=== PATIENT | male | born 1975 | race Caucasian/White ===

== ENCOUNTER → 2018-04-15 | Outpatient (CLI) | payer BC ==
[~2018-04-15] VITALS: Ht 172.7 cm; Wt 81.6 kg
[~2018-04-15] MED LIST: DIAZ5TAB3; HYDROCO/APAP; ONDA4TAB8 PO; ONDANSETRON 4 MG/2 ML (SDV) Z0FRAN IV ONE; PANT40TA2 PO
[2018-04-15 10:57] VITALS: BP 109/73
[2018-04-15] MEDS: NS IV 1000 ML 1,000 ML IV SCH ×2 (11:00→11:58)
[2018-04-15 12:55] VITALS: BP 109/73
== END ==
LOC: SDC 10:26
DX: E86.0 Dehydration (principal)
CPT/HCPCS: 96361; 96374

== ENCOUNTER → 2019-01-24 | Outpatient (CLI) | payer BC ==
[~2019-01-24] MED LIST changes: +IOHEXOL 350 MG/ML 100 ML (OMNIPAQUE 350) VIAL IV ONE; +NS 100 ML (IVPB) BAG IV ONE; -ONDANSETRON 4 MG/2 ML (SDV) Z0FRAN IV ONE; +RECEIVED CONTRAST 20 ML VIAL IV SCH
--- NOTE | 2019-01-24 14:26 | Diagnostic Imaging Report ---
PROCEDURE: CT abdomen and pelvis with and without contrast. TECHNIQUE: Precontrast acquisitions were acquired through the abdomen and pelvis. Multiple contiguous axial images were obtained through the abdomen and pelvis after the administration of intravenous contrast. INDICATION: Abdominal pain and vomiting. COMPARISON: Comparison made with prior examination 06/29/2016. FINDINGS: Heart size normal. Lung bases are clear. Liver is normal in size without focal lesions. Gallbladder is unremarkable. There is no biliary ductal dilatation. Spleen is normal. The pancreas and adrenal glands are unremarkable. The kidneys are normal in appearance. Aorta is nonaneurysmal. Bowel gas pattern is nonspecific. There is no free air. There is no ascites. There are no focal inflammatory changes. There is no pelvic mass, adenopathy or free fluid. The appendix appears to be surgically absent. The osseous structures are unremarkable. IMPRESSION: Unremarkable CT abdomen and pelvis. Dictated by: Dictated on workstation # [id number]
== END ==
LOC: RAD 13:01
PROVIDERS: ATTEND Nurse Practitioner Family
DX: K21.9 Gastro-esophageal reflux disease without esophagitis (principal); F12.10 Cannabis abuse, uncomplicated; F41.9 Anxiety disorder, unspecified; E78.00 Pure hypercholesterolemia, unspecified; R61 Generalized hyperhidrosis; R10.9 Unspecified abdominal pain
CPT/HCPCS: 74178

== ENCOUNTER → 2019-04-23 | Outpatient (CLI) | payer BC ==
[~2019-04-23] MED LIST changes: +CATHETER FLUSH 10 ML SYR IV PRN; -IOHEXOL 350 MG/ML 100 ML (OMNIPAQUE 350) VIAL IV ONE; -NS 100 ML (IVPB) BAG IV ONE; -RECEIVED CONTRAST 20 ML VIAL IV SCH
--- NOTE | 2019-04-23 12:04 | Diagnostic Imaging Report ---
Indication: Right upper quadrant pain. Patient was administered 5.5 mCi technetium 99m Choletec intravenously and imaging over the abdomen was performed. At 30 minutes patient ingested ensure and a gallbladder ejection fraction was calculated. There is homogeneous uptake of activity by the liver with prompt excretion of activity into the gallbladder and common duct. Normal passage of activity into the small bowel is seen. Gallbladder ejection fraction is normal at 62%. Impression: Normal HIDA scan and gallbladder ejection fraction. Dictated by: Dictated on workstation # [id number]
== END ==
LOC: CARD 09:37
PROVIDERS: ATTEND Nurse Practitioner Family
DX: R10.11 Right upper quadrant pain (principal)
CPT/HCPCS: 78227

== ENCOUNTER 2020-05-03 20:51 | Emergency (ER) | payer BC, OTHER ==
[~2020-05-03] VITALS: Ht 172.7 cm; Wt 75.6 kg
[~2020-05-03 20:51] MED LIST changes: -CATHETER FLUSH 10 ML SYR IV PRN; -DIAZ5TAB3; +DIAZ5TAB49
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
[2020-05-03] MEDS ORDERED: TETANUS,DIPTH,PERTUSS P/F (BOOSTRIX) 0.5 ML VIAL IM ONE (21:30)
[2020-05-03] MEDS ORDERED: CEPHALEXIN 250 MG (KEFLEX) CAP PO ONE (21:30)
[2020-05-03] MEDS ORDERED: HYDROcodone/APAP 5 MG/325 MG (LORTAB) TAB PO ONE (21:30)
[2020-05-03] MEDS ORDERED: HYDR-83 PO (22:13)
[2020-05-03] MEDS ORDERED: CEPH500T PO (22:13)
[2020-05-03 22:38] VITALS: BP 141/82
--- OUTSIDE RECORDS SUMMARY | 2020-05-04 00:47 | XMS REPORT ---
Author Author Rodney CEBALLOS Organization [facility] [place] Address [address] [place] [address] Care Team Providers Care Manager Intermediate Name Role Phone IFEOMA CEBALLOS Unavailable PROBLEMS Type Condition ICD9-CM Code [id number] Code Onset Dates Condition S tatus SNOMED Code Problem Major depressive disorder, single episode, moderate F32.1 Active 84871541 Problem Generalized anxiety disorder F41.1 A ctive [id number] ALLERGIES No Known Allergies ENCOUNTERS Encounter Location Date Diagnosis [facility] [place] [address] [facility] [id number] [address] [place] [phone] Feb, Major depressive disorder, s jair episode, moderate F32.1 and Generalized anxiety disorder F41.1 [facility] [place] [address] [facility] [id number] [address] [place] [phone] Jan, Generalized anxiety disorder F41.1 and Major depressive disorder, single episode, moderate F32.1 IMMUNIZATIONS No Known Immunizations SOCIAL HISTORY Never Assessed REASON FOR VISIT BH intake JjournotRZhora PLAN OF CARE Activity Details Follow Up 2 Months, prn Reason: VITAL SIGNS Height 68 in 2018-03-12 Weight 176.6 lbs 2018-03-12 Heart Rate 84 bpm 2018-03-12 Respiratory Rate 20 2018-03-12 BMI 26.85 kg/m2 2018-03-12 Blood pressure systolic 106 mmHg 2018-03-12 Blood pressure diastolic 68 mmHg 2018-03-12 MEDICATIONS Medication Instructions Dosage Frequency Start Date End Date Duration S tatus Xanax 0.25 MG Orally Twice a day 1 tablet 12h Active Citalopram Hydrobromide 40 MG Orally Once a day 1 tablet 24h Active RESULTS No Results PROCEDURES No Known procedures INSTRUCTIONS MEDICATIONS ADMINISTERED No Known Medications MEDICAL (GENERAL) HISTORY Type Description Date Medical History hypercholesterolemia Medical History depression and anxiety Surgical History shoulder surgery Surgical History appendectomy
--- OUTSIDE RECORDS SUMMARY | 2020-05-04 00:47 | XMS REPORT ---
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 Role Phone ALEXANDRE WOLF Unavailable PROBLEMS Type Condition ICD9-CM Code [id number] Code Onset Dates Condition S tatus SNOMED Code Problem Major depressive disorder, single episode, moderate F32.1 Active [id number] Problem Generalized anxiety disorder F41.1 A ctive [id number] ALLERGIES No Known Allergies ENCOUNTERS Encounter Location Date Diagnosis [facility] [address] [place] [id number] [place] [phone] Feb, Major depressive disorder, s jair episode, moderate F32.1 and Generalized anxiety disorder F41.1 [facility] [address] [facility] [id number] [address] [place] [phone] Jan, Generalized anxiety disorder F41.1 and Major depressive disorder, single episode, moderate F32.1 IMMUNIZATIONS No Known Immunizations SOCIAL HISTORY Never Assessed REASON FOR VISIT intake PLAN OF CARE Activity Details Follow Up 2 Weeks Reason: VITAL SIGNS MEDICATIONS Medication Instructions Dosage Frequency Start Date End Date Duration S tatus Citalopram Hydrobromide 20 MG Orally Once a day 1 tablet 24h Active Xanax 0.25 MG Orally Twice a day 1 tablet 12h Active RESULTS No Results PROCEDURES Procedure Date Ordered Result Body Site Psych diagnostic evaluation, new patient February 20, 2018 INSTRUCTIONS MEDICATIONS ADMINISTERED No Known Medications MEDICAL (GENERAL) HISTORY Type Description Date Medical History hypercholesterolemia Medical History depression and anxiety Surgical History shoulder surgery Surgical History appendectomy
--- OUTSIDE RECORDS SUMMARY | 2020-05-04 00:47 | XMS REPORT ---
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 [facility] Address [address] [address] Care Team Providers Care Undergraduate Internship Name Role Phone JOSE SHINE Unavailable ALEXANDRE WOLF Unavailable IFEOMA CEBALLOS Unavailable NISSA HOUSE APRN Unavailable Unavailable Unavailable Unavailable Allergies Normalized Allergy Reported Date of Reaction(s) Care Provider Facility Allergy Type classification allergen Allergy Onset MA (8 Unclassified NKANo Known 12-29-2005 - no information ALEXANDRE PELAEZ Not Available sources.) Allergies NATALY (85265) Medications No Information Problems Active Problems Problem Normalized Date Last Normalized Normalized Provider Fa cility Classification Problem(s) Recorded Problem Problem Sta tus Duration Substance-rela Cannabis abuse Chronic Active SID STANTON Not Available pablito disorders with other (03894) (4 sources.) cannabis-induc ed disorder Translations: [ CANNABIS ABUSE, UNCOMPLICATED] Fluid and Dehydration Episodic Active JOSE SHINE Not A vailable electrolyte MD (53108) disorders (3 sources.) Abdominal Diaphragmatic Episodic Active NEHEMIAS PADRON , Not Available hernia (2 hernia without DO (74041) sources.) obstruction or gangrene Gastritis and Gastritis, Episodic Active NEHEMIAS PADRON , No t Available duodenitis (2 unspecified, DO (99717) sources.) without bleeding Esophageal Gastro-esophag Chronic Active NEHEMIAS PADRON , N ot Available disorders (4 eal reflux DO (48185) sources.) disease without esophagitis Other skin Generalized Episodic Active CLINTON JERARDO Not Kathia ilable disorders (2 hyperhidrosis (49769) sources.) Malaise and Weakness Episodic Active SID STANTON Not Avail able fatigue (2 (63161) sources.) Past or Other Problems Problem Normalized Date Last Normalized Normalized Provider Fa cility Classification Problem(s) Recorded Problem Problem Sta tus Duration Disorders of Pure no information no information CLINTON JERARDO Not Available lipid hypercholester (54660) metabolism (2 olemia, sources.) unspecified Procedures The data below is from unstructured sourcesNo known history of procedures. No Known procedures No Known procedures Immunizations The data below is from unstructured sourcesNo immunization records.No immunization records.No immunization records. No Known Immunizations No Known Immunizations No Known Immunizations No Known Immunizations Results The data below is from unstructured sources No Results No Results No Results Vital Signs The data below is from unstructured sources Vital Response Date/Time Temperature (Fahrenheit) 97.8 degree s F (97.6 - 99.5) 06/29/2016 11:01am Temperature (Calculated Celsius) 36. 95256 degrees C (36.4 - 37.5) 06/29/2016 11:01am Temperature Source Temporal 06/29/2016 11:01am Pulse Rate (adult) 71 bpm (60 - 90) 06/29/2016 11:01am Respiratory Rate 18 bpm (12 - 24) 06/29/2016 11:01am Blood Pressure 147/87 mm Hg 06/29/2016 11:01am Blood Pressure Mean 107 mm Hg 06/29/2016 11:01am Pain Numeric Pain Scale 7 1:30pm Height (Feet) 5 feet 02/2016 11:01am Height (Inches) 8 inches 06/29/2016 11:01am Height (Calculated Centimeters) 172. 428435 cm 06/29/2016 11:01am Weight (Pounds) 180 pounds 06/29/2016 11:01am Weight (Calculated Kilograms) 81.646 627 kilograms 06/29/2016 11:01am Capillary Refill Capillary Refill Less Than 3 Seconds 06/29/2016 11:01am Height 5 ft 8 in Weight 180 lb Body Mass Index 27.4 kg/m^2 Vital Response Date/Time Temperature (Fahrenheit) 98.0 degree s F (97.6 - 99.5) 07/04/2016 12:20pm Temperature (Calculated Celsius) 36. 55955 degrees C (36.4 - 37.5) 07/04/2016 12:20pm Temperature Source Tympanic 07/04/2016 12:20pm Pulse Rate (adult) 63 bpm (60 - 90) 07/04/2016 12:20pm Respiratory Rate 16 bpm (12 - 24) 07/04/2016 12:20pm O2 Sat by Pulse Oximetry 98 % (88 - 100) 07/04/2016 12:20pm Blood Pressure 105/66 mm Hg 07/04/2016 12:20pm Blood Pressure Mean 84 mm Hg 07/04/2016 10:30am Pain Numeric Pain Scale 0-No Pain 07/04/2016 12:20pm Pain Intensity 0 2015 12:13pm Height (Feet) 5 feet 07/2016 10:40am Height (Inches) 9.00 inches 07/04/2016 10:40am Height (Calculated Centimeters) 175. 261486 cm 07/04/2016 10:40am Weight (Pounds) 180 pounds 07/04/2016 10:40am Weight (Ounces) 0.0 oz 0 07/04/2016 10:40am Weight (Calculated Grams) 38492.627 gm 07/04/2016 10:40am Weight (Calculated Kilograms) 81.646 627 kilograms 07/04/2016 10:40am Calculated BMI 26.6 07/2016 10:25am Capillary Refill Capillary Refill Less Than 3 Seconds 06/29/2016 11:01am Interventions No Information Plan of Treatment The data below is from unstructured sources Discharge Date 06/29/16 1:48pm Disposition 01 HOME, SELF-CARE Condition at Discharge Improved Instructions/Education Provided Acut e Abdominal Pain (ED) Prescriptions See Medication Section Referrals JOSE SHINE MD - [facility] Physician Additional Instructions/Education Gr adually advance your diet with small quantities of bland food. Drink plenty of clear liquids. Use Zofran as prescribed for nausea. Follow-up with Dr. Padron for your abdominal pain. Continue using an antacid daily such as Prilosec or Nexium. You are symptoms may be related to narcotic withdrawal. Gradually taper off of your narcotics and avoid abrupt cessation of narcotic use in the future. All discharge instructions reviewed with patient and/or family. Voiced understanding. Discharge Date 07/04/16 12:20pm Instructions/Education Provided EGD- ESOPHAGOGASTRODUODENOSCOPY Prescriptions See Medication Section Activity Details Follow Up 2 Weeks Reason: Activity Details Follow Up 2 Months, prn Reason: Activity Details Follow Up 2 Months, prn Reason: Goals No Information Social History No Information Functional Status The data below is from unstructured sourcesNo functional status results.No functional status results.No functional status results. Mental Status No Information Encounters Encounter Normalized Encounter Encounter Diagnosis Care Provi mel Organization Date Type 09-07-2016 Emergency department no information no name no organization name - patient visit 09-07-2016 04-15-2018 Patient encounter no information no name no or ganization name 03-12-2018 Patient encounter no information no name no or ganization name 02-20-2018 Patient encounter no information no name no or ganization name 07-04-2016 Patient encounter no information no name no or ganization name - 07-04-2016 04-23-2019 Patient encounter no information no name no or ganization name procedure 04-23-2019 Patient encounter no information no name no or ganization name procedure 01-24-2019 Patient encounter no information no name no or ganization name procedure Medical Equipment No Information Payers No Information Discharge Instructions No hospital discharge instructions. Patient Instructions Physician Instructions New, Converted or Re-Newed RX: Transmitted to Pharmacy Plan of Care/Instructions/FU: Follow up with Dr. Padron in 2 weeks. Activity as Tolerated: Yes Discharge Diet: No Restrictions Care Plan Patient Instructions:: Follow up with Dr. Padron in 2 weeks. Advance Directives Directive Response Recor ded Date/Time Advance Directives No 10:40am Health Care Power of Tile Layer No 07/04/16 10:40am Organ Donor No 07/04/16 10:40am Resuscitation Status Full Code 07/04/16 10:40am Additional Source Comments This clinical document has been generated using [employer] software that has been certified by the Office of the National Coordinator for Health Information Technology (ONC 15.99.04.3023.Diam.31.00.0.302432) and the National Committee for Quality Control Representative (NCQA, as an eMeasure certified technology). FOR RECORDS PERTAINING TO PATIENTS WHO ARE OR HAVE BEEN ENROLLED IN A CHEMICAL D EPENDENCY/SUBSTANCE ABUSE PROGRAM, SOME INFORMATION MAY BE OMITTED. This clinica l summary was aggregated from multiple sources. Caution should be exercised in using it in the provision of clinical care. This summary normalizes information from multiple sources, and as a consequence, information in this document may ma terially change the coding, format and clinical context of patient data. In melissa tion, data may be omitted in some cases. CLINICAL DECISIONS SHOULD BE BASED ON T HE PRIMARY CLINICAL RECORDS. [employer] provides no warranty or guara ntee of the accuracy or completeness of information in this document.The followi ng information is based on time limited clinical information UNRECOGNIZED CONTENT PROVIDED BELOW FOR UNRECOGNIZED SECTION MEDICAL (GENERAL) HISTORY Type Description Date Medical History hypercholesterolemia Medical History depression and anxiety Surgical History shoulder surgery Surgical History appendectomy
--- OUTSIDE RECORDS SUMMARY | 2020-05-04 00:47 | XMS REPORT | Continuity of Care Document ---
Author Organization Unknown Address Unknown Phone Unavailable Allergies Active Description Code Type Severity Reaction Onset Reported/Identified Relationship to Patient Clinical Status Yes NKANo Known Allergies NKA Miscellaneous Allergy Unknown N/A 12/29/2005 Medications There is no data. Problems Date Dx Coded Attending Type Code Diagnosis Diagnosed By 06/26/2016 FÁTIMA CANTRELL, JOSE Salmeron Ot 723.1 CERVICALGIA 06/29/2016 NATALY CANTRELL, PAL V[place] Ot R10.84 GENERALIZED ABDOMINAL PAIN 06/29/2016 NATALY CANTRELL, PAL [place] Ot R11.2 NAUSEA WITH VOMITING, UNSPECIFIED 06/29/2016 JOSE SHINE MD Ot 723.1 CERVICALGIA 06/30/2016 NATALY CANTRELL, PAL T Ot R10.84 GENERALIZED ABDOMINAL PAIN 06/30/2016 NATALY CANTRELL, PAL T Ot R11.2 NAUSEA WITH VOMITING, UNSPECIFIED 06/30/2016 NEHEMIAS PADRON DO Ot K21. 9 GASTRO-ESOPHAGEAL REFLUX DISEASE WITHOUT 06/30/2016 NEHEMIAS PADRON DO Ot Z01.818 ENCOUNTER FOR OTHER PREPROCEDURAL EXAMIN 07/04/2016 NEHEMIAS PADRON DO Ot K21. 9 GASTRO-ESOPHAGEAL REFLUX DISEASE WITHOUT 07/04/2016 NEHEMIAS PADRON DO Ot K29. 70 GASTRITIS, UNSPECIFIED, WITHOUT BLEEDING 07/04/2016 NEHEMIAS PADRON DO Ot K44. 9 DIAPHRAGMATIC HERNIA WITHOUT OBSTRUCTION 09/07/2016 SID STANTON APRN Ot F12.188 CANNABIS ABUSE WITH OTHER CANNABIS-INDUC 09/07/2016 SID STANTON APRN Ot R11 .0 NAUSEA 09/07/2016 SID STANTON APRN Ot R53 .1 WEAKNESS 09/08/2016 SID STANTON APRN Ot F12.188 CANNABIS ABUSE WITH OTHER CANNABIS-INDUC 09/08/2016 SID STANTON APRN Ot R11 .0 NAUSEA 09/08/2016 STANTON, PETER J DATA PROGRAMMER Ot R53 .1 WEAKNESS 04/18/2018 FÁTIMA CANTRELL, JOSE D Ot E86.0 DEHYDRATION 04/29/2018 FÁTIMA CANTRELL, JOSE D Ot E86.0 DEHYDRATION 01/24/2019 FÁTIMA CANTRELL, JOSE D Ot E86.0 DEHYDRATION 01/27/2019 JERARDO, CLINTON L DATA PROGRAMMER Ot E78.00 PURE HYPERCHOLESTEROLEMIA, UNSPECIFIED 01/27/2019 JERARDO, CLINTON L DATA PROGRAMMER Ot F12.10 CANNABIS ABUSE, UNCOMPLICATED 01/27/2019 JERARDO, CLINTON L DATA PROGRAMMER Ot F41 .9 ANXIETY DISORDER, UNSPECIFIED 01/27/2019 JERARDO, CLINTON L DATA PROGRAMMER Ot K21 .9 GASTRO-ESOPHAGEAL REFLUX DISEASE WITHOUT 01/27/2019 JERARDO, CLINTON L DATA PROGRAMMER Ot R10 .9 UNSPECIFIED ABDOMINAL PAIN 01/27/2019 JERARDO, CLINTON L DATA PROGRAMMER Ot R61 GENERALIZED HYPERHIDROSIS 02/10/2019 JERARDO, CLINTON L DATA PROGRAMMER Ot E78.00 PURE HYPERCHOLESTEROLEMIA, UNSPECIFIED 02/10/2019 JERARDO, CLINTON L DATA PROGRAMMER Ot F12.10 CANNABIS ABUSE, UNCOMPLICATED 02/10/2019 JERARDO, CLINTON L DATA PROGRAMMER Ot F41 .9 ANXIETY DISORDER, UNSPECIFIED 02/10/2019 JERARDO, CLINTON L DATA PROGRAMMER Ot K21 .9 GASTRO-ESOPHAGEAL REFLUX DISEASE WITHOUT 02/10/2019 JERARDO, CLINTON L DATA PROGRAMMER Ot R10 .9 UNSPECIFIED ABDOMINAL PAIN 02/10/2019 JERARDO, CLINTON L DATA PROGRAMMER Ot R61 GENERALIZED HYPERHIDROSIS 04/25/2019 NISSA HOUSE DATA PROGRAMMER Ot R10.11 RIGHT UPPER QUADRANT PAIN 05/23/2019 NISSA HOUSE DATA PROGRAMMER Ot R10.11 RIGHT UPPER QUADRANT PAIN 05/03/2020 FÁTIMA CANTRELL, JOSE D Ot E86.0 DEHYDRATION 05/03/2020 JERARDO, CLINTON L DATA PROGRAMMER Ot E78.00 PURE HYPERCHOLESTEROLEMIA, UNSPECIFIED 05/03/2020 JERARDO, CLINTON L DATA PROGRAMMER Ot F12.10 CANNABIS ABUSE, UNCOMPLICATED 05/03/2020 JERARDO, CLINTON L DATA PROGRAMMER Ot F41 .9 ANXIETY DISORDER, UNSPECIFIED 05/03/2020 JERARDO, CLINTON L DATA PROGRAMMER Ot K21 .9 GASTRO-ESOPHAGEAL REFLUX DISEASE WITHOUT 05/03/2020 JERARDO, CLINTON L DATA PROGRAMMER Ot R10 .9 UNSPECIFIED ABDOMINAL PAIN 05/03/2020 CLINTON KURTZ DATA PROGRAMMER Ot R61 GENERALIZED HYPERHIDROSIS 05/03/2020 NISSA HOUSE DATA PROGRAMMER Ot R10.11 RIGHT UPPER QUADRANT PAIN Procedures There is no data. Results Test Result Range Complete blood count (CBC) with automate d white blood cell (WBC) differential - 06/29/16 11:15 Blood leukocytes automated count (number/volume) 9.8 10*3/uL 4.3-11.0 Blood erythrocytes automated count (number/volume) 4.71 10*6/uL 4.35-5.85 Venous blood hemoglobin measurement (mass/volume) 14.2 g/dL 13.3-17.7 Blood hematocrit (volume fraction) 42 % 40-54 Automated erythrocyte mean corpuscular volume 89 [ foz_us] 80-99 Automated erythrocyte mean corpuscular h emoglobin (mass per erythrocyte) 30 pg 25-34 Automated erythrocyte mean corpuscular h emoglobin concentration measurement (mass/volume) 34 g/dL 32-36 Automated erythrocyte distribution width ratio 12. 8 % 10.0- 14.5 Automated blood platelet count (count/volume) 257 10*3/uL 130-400 Automated blood platelet mean volume measurement 10.3 [foz_us] 7.4-10.4 Automated blood neutrophils/100 leukocytes 86 % 42-75 Automated blood lymphocytes/100 leukocytes 8 % 12-44 Blood monocytes/100 leukocytes 5 % 0-12 Automated blood eosinophils/100 leukocytes 0 % 0-10 Automated blood basophils/100 leukocytes 0 % 0-10 Blood neutrophils automated count (number/volume) 8.5 10*3 1.8-7.8 Blood lymphocytes automated count (number/volume) 0.8 10*3 1.0-4.0 Blood monocytes automated count (number/volume) 0. 5 10*3 0.0-1.0 Automated eosinophil count 0.0 10*3/uL 0 .0-0.3 Automated blood basophil count (count/volume) 0.0 10*3/uL 0.0-0.1 Comprehensive metabolic panel - 06/29/16 11:15 Serum or plasma sodium measurement (moles/volume) 142 mmol/L 135-145 Serum or plasma potassium measurement (moles/volume) 4.1 mmol/L 3.6-5.0 Serum or plasma chloride measurement (moles/volume) 109 mmol/L 98-107 Carbon dioxide 24 mmol/L 21-32 Serum or plasma anion gap determination (moles/volume) 9 mmol/L 5-14 Serum or plasma urea nitrogen measurement (mass/volume ) 9 mg/dL 7-18 Serum or plasma creatinine measurement (mass/volume) 0.88 mg/dL 0.60-1.30 Serum or plasma urea nitrogen/creatinine mass ratio 10 NRG Serum or plasma creatinine measurement w ith calculation of estimated glomerular filtration rate > NRG Serum or plasma glucose measurement (mass/volume) 132 mg/dL 70-105 Serum or plasma calcium measurement (mass/volume) 9.0 mg/dL 8.5-10.1 Serum or plasma total bilirubin measurement (mass/volu me) 0.9 mg/dL 0.1-1.0 Serum or plasma alkaline phosphatase cayetano surement (enzymatic activity/volume) 58 U/L 40-136 Serum or plasma aspartate aminotransfera se measurement (enzymatic activity/volume) 17 U/L 5-34 Serum or plasma alanine aminotransferase measurement (enzymatic activity/volume) 14 U/L 0-55 Serum or plasma protein measurement (mass/volume) 6.9 g/dL 6.4-8.2 Serum or plasma albumin measurement (mass/volume) 4.3 g/dL 3.2-4.5 Magnesium - 06/29/16 11:15 Magnesium 1.6 mg/dL 1.8-2.4 Lipase - 06/29/16 11:15 Lipase 35 U/L 8-78 Serum or plasma C reactive protein measu rement (mass/volume) - 06/29/16 11:15 Serum or plasma C reactive protein measurement (mass/v olume) 0.46 mg/dL 0.00-0.50 Serum or plasma ethanol measurement (mas s/volume) - 06/29/16 11:15 Serum or plasma ethanol measurement (mass/volume) < mg/dL <10 Erythrocyte sedimentation rate by ginger gren method - 06/29/16 11:15 Erythrocyte sedimentation rate by westergren method 7 mm 0- 15 Complete urinalysis with reflex to cultu re - 06/29/16 11:38 Urine color determination YELLOW NRG Urine clarity determination CLEAR NR G Urine pH measurement by test strip 7 5-9 Specific gravity of urine by test strip 1.020 1.016-1.022 Urine protein assay by test strip, semi-quantitative 1+ NEGATIVE Urine glucose detection by automated test strip NE GATIVE NEGATIVE Erythrocytes detection in urine sediment by light micr oscopy 1+ NEGATIVE Urine ketones detection by automated test strip 4+ NEGATIVE Urine nitrite detection by test strip NEGATIVE NEGATIVE Urine total bilirubin detection by test strip NEGA TIVE NEGATIVE Urine urobilinogen measurement by automated test strip (mass/volume) NORMAL NORMAL Urine leukocyte esterase detection by dipstick NEG ATIVE NEGATIVE Automated urine sediment erythrocyte cou nt by microscopy (number/high power field) RARE NRG Automated urine sediment leukocyte count by microscopy (number/high power field) NONE NRG Bacteria detection in urine sediment by light microsco py NEGATIVE NRG Squamous epithelial cells detection in u rine sediment by light microscopy RARE NRG Crystals detection in urine sediment by light microsco py NONE NRG Casts detection in urine sediment by light microscopy NONE NRG Mucus detection in urine sediment by light microscopy SMALL NRG Complete urinalysis with reflex to culture NO NRG Urine drug screening test - 06/29/16 11: 38 Urine acetaminophen detection by screening method NEGATIVE NEGATIVE Urine phencyclidine detection by screening method NEGATIVE NEGATIVE Urine benzodiazepines detection by screening method POSITIVE NEGATIVE Urine cocaine detection NEGATIVE NEGATI VE Urine amphetamines detection by screening method N EGATIVE NEGATIVE Urine methamphetamine detection by screening method NEGATIVE NEGATIVE Urine cannabinoids detection by screening method P OSITIVE NEGATIVE Urine opiates detection by screening method NEGATI VE NEGATIVE Urine barbiturates detection NEGATIVE N EGATIVE Screening urine tricyclic antidepressants detection NEGATIVE NEGATIVE Urine methadone detection by screening method NEGA TIVE NEGATIVE Complete blood count (CBC) with automate d white blood cell (WBC) differential - 09/07/16 10:55 Blood leukocytes automated count (number/volume) 13.1 10*3/uL 4.3-11.0 Blood erythrocytes automated count (number/volume) 4.72 10*6/uL 4.35-5.85 Venous blood hemoglobin measurement (mass/volume) 14.1 g/dL 13.3-17.7 Blood hematocrit (volume fraction) 41 % 40-54 Automated erythrocyte mean corpuscular volume 88 [ foz_us] 80-99 Automated erythrocyte mean corpuscular h emoglobin (mass per erythrocyte) 30 pg 25-34 Automated erythrocyte mean corpuscular h emoglobin concentration measurement (mass/volume) 34 g/dL 32-36 Automated erythrocyte distribution width ratio 12. 8 % 10.0- 14.5 Automated blood platelet count (count/volume) 264 10*3/uL 130-400 Automated blood platelet mean volume measurement 10.3 [foz_us] 7.4-10.4 Automated blood neutrophils/100 leukocytes 92 % 42-75 Automated blood lymphocytes/100 leukocytes 4 % 12-44 Blood monocytes/100 leukocytes 4 % 0-12 Automated blood eosinophils/100 leukocytes 0 % 0-10 Automated blood basophils/100 leukocytes 0 % 0-10 Blood neutrophils automated count (number/volume) 12.0 10*3 1.8-7.8 Blood lymphocytes automated count (number/volume) 0.6 10*3 1.0-4.0 Blood monocytes automated count (number/volume) 0. 5 10*3 0.0-1.0 Automated eosinophil count 0.0 10*3/uL 0 .0-0.3 Automated blood basophil count (count/volume) 0.0 10*3/uL 0.0-0.1 Blood manual differential performed dete ction - 09/07/16 10:55 Blood monocytes/100 leukocytes 4 % NRG Manual blood segmented neutrophils/100 leukocytes 92 % NRG Manual blood lymphocytes/100 leukocytes 4 % NRG Blood erythrocyte morphology finding identification NORMAL NR Comprehensive metabolic panel - 09/07/16 10:55 Serum or plasma sodium measurement (moles/volume) 141 mmol/L 135-145 Serum or plasma potassium measurement (moles/volume) 3.9 mmol/L 3.6-5.0 Serum or plasma chloride measurement (moles/volume) 109 mmol/L 98-107 Carbon dioxide 22 mmol/L 21-32 Serum or plasma anion gap determination (moles/volume) 10 mmol/L 5-14 Serum or plasma urea nitrogen measurement (mass/volume ) 7 mg/dL 7-18 Serum or plasma creatinine measurement (mass/volume) 0.88 mg/dL 0.60-1.30 Serum or plasma urea nitrogen/creatinine mass ratio 8 NRG Serum or plasma creatinine measurement w ith calculation of estimated glomerular filtration rate > NRG Serum or plasma glucose measurement (mass/volume) 124 mg/dL 70-105 Serum or plasma calcium measurement (mass/volume) 9.0 mg/dL 8.5-10.1 Serum or plasma total bilirubin measurement (mass/volu me) 0.8 mg/dL 0.1-1.0 Serum or plasma alkaline phosphatase cayetano surement (enzymatic activity/volume) 50 U/L 40-136 Serum or plasma aspartate aminotransfera se measurement (enzymatic activity/volume) 13 U/L 5-34 Serum or plasma alanine aminotransferase measurement (enzymatic activity/volume) 14 U/L 0-55 Serum or plasma protein measurement (mass/volume) 6.8 g/dL 6.4-8.2 Serum or plasma albumin measurement (mass/volume) 4.4 g/dL 3.2-4.5 Lipase - 09/07/16 10:55 Lipase 58 U/L 8-78 Complete urinalysis with reflex to cultu re - 09/07/16 11:05 Urine color determination YELLOW NRG Urine clarity determination CLEAR NR G Urine pH measurement by test strip 8 5-9 Specific gravity of urine by test strip 1.010 1.016-1.022 Urine protein assay by test strip, semi-quantitative NEGATIVE NEGATIVE Urine glucose detection by automated test strip 1+ NEGATIVE Erythrocytes detection in urine sediment by light micr oscopy NEGATIVE NEGATIVE Urine ketones detection by automated test strip 2+ NEGATIVE Urine nitrite detection by test strip NEGATIVE NEGATIVE Urine total bilirubin detection by test strip NEGA TIVE NEGATIVE Urine urobilinogen measurement by automated test strip (mass/volume) NORMAL NORMAL Urine leukocyte esterase detection by dipstick NEG ATIVE NEGATIVE Automated urine sediment erythrocyte cou nt by microscopy (number/high power field) NONE NRG Automated urine sediment leukocyte count by microscopy (number/high power field) NONE NRG Bacteria detection in urine sediment by light microsco py NEGATIVE NRG Squamous epithelial cells detection in u rine sediment by light microscopy RARE NRG Crystals detection in urine sediment by light microsco py NONE NRG Casts detection in urine sediment by light microscopy NONE NRG Mucus detection in urine sediment by light microscopy SMALL NRG Complete urinalysis with reflex to culture NO NRG Urine drug screening test - 09/07/16 11: 05 Urine phencyclidine detection by screening method NEGATIVE NEGATIVE Urine benzodiazepines detection by screening method POSITIVE NEGATIVE Urine cocaine detection NEGATIVE NEGATI VE Urine amphetamines detection by screening method N EGATIVE NEGATIVE Urine methamphetamine detection by screening method NEGATIVE NEGATIVE Urine cannabinoids detection by screening method P OSITIVE NEGATIVE Urine opiates detection by screening method NEGATI VE NEGATIVE Urine barbiturates detection NEGATIVE N EGATIVE Screening urine tricyclic antidepressants detection NEGATIVE NEGATIVE Urine methadone detection by screening method NEGA TIVE NEGATIVE Urine oxycodone detection NEGATIVE NEGA TIVE Urine propoxyphene detection NEGATIVE N EGATIVE Urine buprenophrine screen NEGATIVE NEG ATIVE Encounters ACCT No. Visit Date/Time Discharge Status Pt. Type Provider Facility Loc./Unit Complaint [id number] 03/12/2018 15:00:00 03/12/2018 23:59: 59 CLS Out[facility] [id number] 05/03/2020 20:52:00 22:37:00 DIS Emergency ALICE CANTRELL, CLOVIS Cardozo [facility] ER BILAT ARM INJ [id number] 04/23/2019 09:37:00 23:59:59 CLS Outpatient NISSA HOUSE DATA PROGRAMMER [facility] CARD RIGHT UPPER QUADRANT P AIN [id number] 01/24/2019 13:01:00 23:59:59 CLS Outpatient CLINTON KURTZ DATA PROGRAMMER [facility] RAD ABD PAIN [id number] 04/15/2018 10:26:00 018 23:59:59 CLS Outpatient FÁTIMA CANTRELL, JOSE Salmeron [facility] DEHYDRATION [id number] 09/07/2016 10:39:00 11:56:00 DIS Emergency SID STANTON DATA PROGRAMMER [facility] ER NAUSEA/WEAKNESS [id number] 07/04/2016 10:21:00 016 12:20:00 DIS [facility] [id number] 06/29/2016 05:36:00 016 23:59:59 CLS Outpatient NEHEMIAS PADRON DO [facility] PREOP [id number] 06/29/2016 10:55:00 016 13:48:00 DIS Emergency PAL INGRAM MD [facility] ER ABD PAIN/VOMITI NG [id number] 06/05/2014 13:45:00 014 23:59:59 CLS Outpatient FÁTIMA CANTRELL, [facility]
[2020-05-04] MEDS ORDERED: NEO/POLY/BAC (NEOSPORIN) OINT 15 GM TUBE TOP SCH (09:00)
== END 2020-05-03 22:37 | disposition home or self-care (01) ==
LOC: EDUNIT# 20:51 → ER 20:52
DX: S40.811A Abrasion of right upper arm, initial encounter (principal); S40.812A Abrasion of left upper arm, initial encounter; S30.811A Abrasion of abdominal wall, initial encounter; R40.2142 Coma scale, eyes open, spontaneous, at arrival to emergency department; R40.2252 Coma scale, best verbal response, oriented, at arrival to emergency department; R40.2362 Coma scale, best motor response, obeys commands, at arrival to emergency department; Z23 Encounter for immunization; V29.9XXA Motorcycle rider (driver) (passenger) injured in unspecified traffic accident, initial encounter
CPT/HCPCS: 90715; 99284

== ENCOUNTER → 2021-12-05 | Outpatient (CLI) | payer BC ==
[~2021-12-05] MED LIST changes: +ACHD5005 PO; +CEPH500T PO
--- NOTE | 2021-12-05 17:13 | Diagnostic Imaging Report ---
Indication: Left middle finger injury 3 views of the left hand show no fracture, dislocation or other acute abnormalities. IMPRESSION: Negative left hand Dictated by: Dictated on workstation # [id number]
== END ==
LOC: RAD 16:35
DX: M79.645 Pain in left finger(s) (principal)
CPT/HCPCS: 73130